=== PATIENT | male | born 1980 | race Two or more races ===

== ENCOUNTER 2025-01-27 16:50 | Emergency (ER) | payer MEDICAID, OTHER ==
[~2025-01-27] VITALS: Ht 157.5 cm; Wt 90.2 kg
--- NOTE | 2025-01-27 17:24 | ED.PDOC ---
HPI Comments 44-year-old male presents to the ER with reported history of a negative endoscopy/colonoscopy last year and appendectomy brought in by spouse complaining of diffuse abdominal pain for the past month. Patient describes the pain as soreness, as if he has been working out, states it is constant, and states it does not improve with proton pump inhibitors that he has been taking daily. He states the pain became severe last night around 1:30 a.m., radiated to his chest and mid esophageal area, resulting in shortness of breath. Patient denies any chest pain now, and denies feeling short of breath at this moment. He states the abdominal pain is severe, and is concerned it may be due to food allergies. Denies chills, fever, N/V/D or urinary symptoms. No other associated symptoms, modifiers, recent injuries or sick contacts present at this time. Chief Complaint: Abdominal Pain Time Seen by MD: 17:05 Reviewed Notes: Nurses Notes, Medications, Allergies Allergies: Coded Allergies: NO KNOWN ALLERGIES (Unverified , 01/27/25) Home Meds Active Scripts Hydrocodone-Acetaminophen (Hydrocodone Bitartrate/AC 5-325 mg) 1 Tab Tab, 1 TAB PO Q6HP PRN, #20 TAB prn breakthrough pain Prov:AHMET LITTLE MD 01/27/25 Dicyclomine Hcl (BENTYL CAPSULE) 10 Mg Cp, 2 CAP PO Q6HP PRN, #30 CAP 11 Refills prn abdominal pain Prov:AHMET LITTLE MD 01/27/25 Sucralfate (CARAFATE) 1 Gm Tab, 1 GM OR Q12HR, #60 TAB Prov:AHMET LITTLE MD 01/27/25 Famotidine (Pepcid AC) 20 Mg Tab, 20 MG PO BID, #60 TAB Prov:AHMET LITTLE MD 01/27/25 Information Source: Patient Mode of Arrival: Ambulatory Severity: Moderate Timing: Months Duration: Since onset Prehospital treatment: None Location: Chest (L) Radiation: No Radiation Quality: Pressure, Burning Onset: At Rest Cardiac Risk Factors: None PE Risk Factors: None History of: None Associated Signs and Symptoms: Abdominal Pain, Heartburn Past Medical History PAST MEDICAL HISTORY: Denies Surgical History: Appendectomy, Denies all surgeries Surgical History (Other): Endoscopy one year ago Family History Family History: Reviewed,noncontributory to illness, Unknown Social History Smoker: Non-Smoker Alcohol: Denies ETOH Use Drugs: Denies Drug Use Lives In: Home Constitutional: denies: chills, diaphoresis, fatigue, fever, malaise, sweats, weakness, others EENTM: denies: blurred vision, double vision, ear bleeding, ear discharge, ear drainage, ear pain, ear ringing, eye pain, eye redness, hearing loss, mouth pain, mouth swelling, nasal discharge, nose bleeding, nose congestion, nose pain, photophobia, tearing, throat pain, throat swelling, voice changes, others Respiratory: denies: cough, hemoptysis, orthopnea, SOB at rest, shortness of breath, SOB with excertion, stridor, wheezing, others Cardiovascular: reports: chest pain; denies: dizzy spells, diaphoresis, Dyspnea on exertion, edema, irregular heart beat, left arm pain, lightheadedness, palpitations, PND, syncope, others Gastrointestinal: reports: abdominal pain; denies: abdomen distended, blood streaked bowels, constipated, diarrhea, dysphagia, difficulty swallowing, hematemesis, melena, nausea, poor appetite, poor fluid intake, rectal bleeding, rectal pain, vomiting, others Genitourinary: denies: burning, dysuria, flank pain, frequency, hematuria, incontinence, penile discharge, penile sore, pain, testicle pain, testicle swelling, urgency, others Neurological: denies: dizziness, fainting, headache, left sided numbness, left sided weakness, numbness, paresthesia, pre-existing deficit, right sided numbness, right sided weakness, seizure, speech problems, tingling, tremors, weakness, others Musculoskeletal: denies: back pain, gout, joint pain, joint swelling, muscle pain, muscle stiffness, neck pain, others Integumetry: denies: bruises, change in color, change in hair/nails, dryness, laceration, lesions, lumps, rash, wounds, others Allergic/Immunocompromised: denies: Difficulty Healing, Frequent Infections, Hives, Itching, others Hematologic/Lymphatic: denies: anemia, blood clots, easy bleeding, easy bruising, swollen glands, others Endocrine: denies: excessive hunger, excessive sweating, excessive thirst, excessive urination, flushing, intolerance to cold, intolerance to heat, unexplained weight gain, unexplained weight loss, others Psychiatric: denies: anxiety, bipolar disorder, depression, hopeless, panic disorder, schizophrenia, sleepless, suicidal, others All Other Systems: Reviewed and Negative Physical Exam General Appearance: No Apparent Distress, Obese HEENT: Other (Pupils and face symmetric. Moist mucous membranes.) Neck: Full Range of Motion, Normal Inspection Respiratory: Lungs Clear, No Accessory Muscle Use, No Respiratory Distress, Normal Breath Sounds Cardiovascular: No Edema, No JVD, Regular Rate/Rhythm Breast Exam: Deferred Gastrointestinal: Diffuse, Soft, Tenderness Genitalia: Deferred Pelvic: Deferred Rectal: Deferred Extremities: Normal inspection, Normal range of motion, Non-tender, No pedal edema Musculoskeletal : Apperance: Normal Neurologic: Alert (Oriented x4), Normal Affect, Normal Mood, Other (Ambulatory) Cerebellar Function: NOT DONE Reflexes: NOT DONE Skin: Dry, Normal Color, Warm Lymphatic: NOT DONE EKG EKG : Comments Sinus rhythm, rate 79, normal intervals, left axis deviation, old inferior infarct, nonspecific T change. Was a procedure done? Was a procedure done?: No CP Differential Dx Differential Diagnosis: Angina, CT Other Differential Diagnosis Colitis, diverticular disease, ischemic bowel, impaction, UTI, ulcer disease, pancreatitis, among others Differential Diagnosis: CHF Differential Diagnosis: Chest Wall Pain, Esophageal reflux/spasm, Gastritis, Pericarditis X-Ray, Labs, Meds, VS Vital Signs Date Time Temp Pulse Resp B/P (MAP) Pulse Ox O2 Delivery O2 Flow Rate FiO2 01/27/25 18:10 96 16 120/75 01/27/25 17:51 78 19 98 Room Air* 0 21 01/27/25 17:43 73 16 136/86 01/27/25 17:34 73 16 98 Room Air 01/27/25 17:34 98.2 73 16 136/86 (103) 98 98.2 01/27/25 16:57 98.6 80 16 126/82 (97) 96 98.6 Lab Test 01/27/25 18:43 01/27/25 17:26 01/27/25 17:00 Range/Units Troponin I High Sensitivity < 3 L < 3 L </=54 ng/L White Blood Count 12.3 H 4.4-10.8 10^3/uL Red Blood Count 5.38 4.5-5.90 10^6/uL Hemoglobin 16.5 13.5-17.5 g/dL Hematocrit 48.6 41.0-53.0 % Mean Corpuscular Volume 90.4 80.0-100.0 fL Mean Corpuscular Hemoglobin 30.7 28.0-32.0 pg Mean Corpuscular Hemoglobin Concent 33.9 32.0-36.0 g/dL Red Cell Distribution Width 13.9 11.8-14.3 % Platelet Count 290 140-450 10^3/uL Mean Platelet Volume 8.5 6.9-10.8 fL Neutrophils (%) (Auto) 74.6 37.0-80.0 % Lymphocytes (%) (Auto) 18.3 10.0-50.0 % Monocytes (%) (Auto) 6.0 0.0-12.0 % Eosinophils (%) (Auto) 0.6 0.0-7.0 % Basophils (%) (Auto) 0.5 0.0-2.0 % Neutrophils # (Auto) 9.2 H 1.6-8.6 10 ^3/uL Lymphocytes # (Auto) 2.2 0.4-5.4 10 ^3/uL Monocytes # (Auto) 0.7 0-1.3 10 ^3/uL Eosinophils # (Auto) 0.1 0-0.8 10 ^3/uL Basophils # (Auto) 0.1 0-0.2 10 ^3/uL Nucleated Red Blood Cells 0.0 % Sodium Level 142 136-145 mmol/L Potassium Level 4.2 3.5-5.1 mmol/L Chloride Level 107 98-107 mmol/L Carbon Dioxide Level 22 20-31 mmol/L Anion Gap 13 5-15 Blood Urea Nitrogen 14 9-23 mg/dL Creatinine 0.84 0.700-1.30 mg/dL Glomerular Filtration Rate Calc 110 >90 mL/min BUN/Creatinine Ratio 16.7 10.0-20.0 Serum Glucose 106 74-106 mg/dL Lactic Acid Level 1.1 0.4-2.0 mmol/L Calcium Level 9.8 8.7-10.4 mg/dL Total Bilirubin 0.9 0.2-1.0 mg/dL Aspartate Amino Transferase (AST) 30 13-40 U/L Alanine Aminotransferase (ALT) 74 H 7-40 U/L Alkaline Phosphatase 100 46-116 U/L B-Type Natriuretic Peptide 7.42 0-100 pg/mL Total Protein 7.3 5.7-8.2 g/dL Albumin 4.9 H 3.2-4.8 g/dL Urine Color Light-yellow Yellow Urine Clarity Clear Clear Urine pH 5.5 5.0-9.0 Urine Specific [place] 1.025 1.001-1.035 Urine Protein Negative Negative Urine Ketones Negative Negative Urine Blood Trace H Negative /uL Urine Nitrite Negative Negative Urine Bilirubin Negative Negative Urine Urobilinogen Normal Negative mg/dL Urine Leukocyte Esterase Negative Negative /uL Urine RBC <1 0 - 3 /hpf Urine Microscopic WBC < 1 0-3 /HPF Urine Squamous Epithelial Cells None seen <5 /hpf Urine Bacteria None seen None Seen /hpf Urine Glucose Normal Normal mg/dL Current Medications Medications (Trade) Dose Ordered Sig/Ruth Route Start Time Stop Time Status Last Admin Ondansetron HCl (Zofran) 4 mg ONCE ONCE IV 01/27/25 17:15 01/27/25 17:16 DC 01/27/25 17:42 Morphine Sulfate 4 mg ONCE ONCE IV 01/27/25 17:15 01/27/25 17:16 DC 01/27/25 17:43 Dicyclomine HCl (Bentyl Injection) 20 mg ONCE ONCE IM 01/27/25 17:15 01/27/25 17:16 DC 01/27/25 17:43 Famotidine (Pepcid Injection) 20 mg ONCE ONCE IV 01/27/25 17:15 01/27/25 17:16 DC 01/27/25 17:42 PROCEDURE(s): CXRP - CHEST PORTABLE REASON: chest pain sob ORDER NUMBER(s): [id number], ACCESSION NUMBER(s): [id number] CHEST RADIOGRAPH Indication: chest pain sob Technique: Single frontal view of the chest was obtained Comparison: None FINDINGS: Lines and Tubes: None Lungs: No focal consolidation. Pleura: No effusion. No pneumothorax. Cardiomediastinal contours: Unremarkable Bones: No acute osseous abnormality. IMPRESSION: 1. No acute cardiopulmonary disease. [place] [id number] Ph: [phone] DIAGNOSTIC IMAGING Diagnostic Imaging Report : [id number] Signed PATIENT: AZAM NAYAKACCT: [id number] UNIT: [id number] : 1980 LOC: ER ROOM / BED: / AGE / SEX: 44 / M ADM STATUS: REG ER SERVICE 2071 ORDERING PHYSICIAN: AHMET LITTLE MD PROCEDURE(s): ABPL - CT AB PEL WO CON-NO ORAL OR IV REASON: generaized abd pain ORDER NUMBER(s): [id number], ACCESSION NUMBER(s): [id number] Exam: CT CT AB PEL WO CON-NO ORAL OR IV History: generaized abd pain Comparison Study: None TECHNIQUE: Multidetector CT of the abdomen was performed from lung bases to pubic symphysis. Imaging was performed without IV contrast. Axial, coronal and sagittal multiplanar reformats were obtained from the axial data set by the chnologist. Radiation Dose Information: CT Dose: CTDI volume is 19.88 mGy. Dose-length product is 1105.01 mGy*cm FINDINGS: Evaluation of solid organs is limited due to lack of intravenous contrast use. Findings: Lung Bases: No acute or significant lung base finding. Normal heart size. No pleural or pericardial effusion. Liver: Heterogeneous appearance of the liver changes suggest patchy steatosis. Gallbladder and Biliary Tree: Unremarkable Spleen: Unremarkable Pancreas: The pancreas is grossly normal in appearance. Adrenal Glands: Unremarkable Kidneys: Kidneys are grossly normal without calculi or hydronephrosis. Bladder: Grossly unremarkable for degree of distention. Bowel: The stomach is grossly normal in appearance. Small bowel and colon are normal in caliber and distribution. The appendix is not visualized; however, no secondary findings of acute appendicitis identified. Ascites: Absent Lymphadenopathy: No mesenteric, retroperitoneal or periportal lymphadenopathy. Abdominal Wall and Mesentery: Unremarkable. Vasculature: The visualized abdominal aorta is normal in size and caliber. Evaluation of abdominal and pelvic vessels is limited due to lack of intravenous contrast. Pelvic Organs: Unremarkable Musculoskeletal: No aggressive focal bony lesions, acute fractures or dislocation. Soft tissues: Unremarkable IMPRESSION: 1. Patchy areas of fatty infiltration in the liver consistent with steatosis. There are areas around the gallbladder of increased tissue density may represent areas of fatty sparing. 2. No cholelithiasis. 3. No findings of bowel obstruction. 4. No nephrolithiasis or hydronephrosis. Radiation optimization: All CT scans at this facility use at least one of these dose optimization techniques: automated exposure control mA and/or kV adjustment per patient size (includes targeted exams where dose is matched to clinical indication) or iterative reconstruction. X-Ray, Labs, Meds, VS Comment 44-year-old male with a history of chronic abdominal pain and negative colonoscopy/endoscopy last year complaining of worsening abdominal pain radiating to the chest since last night Vitals unremarkable Exam remarkable for diffuse abdominal tenderness to palpation, nontender to percussion, no rebound or guarding Rhythm strip independently interpreted by me: Sinus rhythm, rate 79, no ectopy. Chest x-ray unremarkable CT abdomen and pelvis IMPRESSION: 1. Patchy areas of fatty infiltration in the liver consistent with steatosis. There are areas around the gallbladder of increased tissue density may represent areas of fatty sparing. 2. No cholelithiasis. 3. No findings of bowel obstruction. 4. No nephrolithiasis or hydronephrosis. CBC remarkable for WBC 12.3, CMP remarkable for ALT 74, lactate normal, troponin negative x2, UA trace blood, otherwise unremarkable Patient treated with the following in the ED: Morphine 4 mg IV, Zofran 4 mg IV, Bentyl 20 mg IM, Pepcid 20 mg IV On re-evaluation, patient states pain has improved. Vitals were stable, abdominal exam was benign, he is tolerating p.o. fluids. Hospitalization was considered, however workup is essentially unremarkable and patient had rapid improvement of symptoms with treatment in the ED. He now appears stable for discharge with close outpatient follow-up with his primary physician for referral to GI. Patient will also be referred to Dr. Suzan Banda. Rx Pepcid, Carafate, Bentyl, [place] Time of 1ST Reevaluation: 17:35 Reevaluation 1ST: Unchanged Time of 2ND Reevaluation: 19:37 Reevaluation 2ND: Improved Patient Education/Counseling: Diagnosis, Treatment, Prognosis Family Education/Counseling: No Family Present Departure 1 Departure Time of Disposition: 19:35 Impression: Primary Impression: Abdominal pain Qualified Codes: R10.84 - Generalized abdominal pain Disposition: 01 HOME / SELF CARE / HOMELESS Condition: Stable Referrals: HERIBERTO BANDA MD Additional Instructions: Your blood and urine test did not show any abnormality that would explain your symptoms. Your chest x-ray was normal. Your CT scan showed a fatty liver, which is unlikely to be the cause of your symptoms. Your CT scan was otherwise normal. I have prescribed medication for your symptoms. Follow-up with your primary doctor in 1-2 days for referral to a counter helper for further evaluation of your abdominal pain. Alternatively, follow-up directly with Dr. Banda. [place] [id number] Ph: [phone] DIAGNOSTIC IMAGING Diagnostic Imaging Report : [id number] Signed PATIENT: AZAM NAYAK ACCT: [id number] UNIT: [id number] : 1980 LOC: ER ROOM / BED: / AGE / SEX: 44 / M ADM STATUS: REG ER SERVICE 06 ORDERING PHYSICIAN: AHMET LITTLE MD PROCEDURE(s): CXRP - CHEST PORTABLE REASON: chest pain sob ORDER NUMBER(s): [id number], ACCESSION NUMBER(s): [id number] CHEST RADIOGRAPH Indication: chest pain sob Technique: Single frontal view of the chest was obtained Comparison: None FINDINGS: Lines and Tubes: None Lungs: No focal consolidation. Pleura: No effusion. No pneumothorax. Cardiomediastinal contours: Unremarkable Bones: No acute osseous abnormality. IMPRESSION: 1. No acute cardiopulmonary disease. ATED BY: TONA FRIED Jr. DO DICTATED DATE/TIME: 01/27/25 1731 [place] [id number] Ph: [phone] DIAGNOSTIC IMAGING Diagnostic Imaging Report : [id number] Signed PATIENT: AZAM NAYAK ACCT: [id number] UNIT: [id number] : 1980 LOC: ER ROOM / BED: / AGE / SEX: 44 / M ADM STATUS: REG ER SERVICE 06 ORDERING PHYSICIAN: AHMET LITTLE MD PROCEDURE(s): ABPL - CT AB PEL WO CON-NO ORAL OR IV REASON: generaized abd pain ORDER NUMBER(s): [id number], ACCESSION NUMBER(s): [id number] Exam: CT CT AB PEL WO CON-NO ORAL OR IV History: generaized abd pain Comparison Study: None TECHNIQUE: Multidetector CT of the abdomen was performed from lung bases to pubic symphysis. Imaging was performed without IV contrast. Axial, coronal and sagittal multiplanar reformats were obtained from the axial data set by the technologist. Radiation Dose Information: CT Dose: CTDI volume is 19.88 mGy. Dose-length product is 1105.01 mGy*cm FINDINGS: Evaluation of solid organs is limited due to lack of intravenous contrast use. Findings: Lung Bases: No acute or significant lung base finding. Normal heart size. No pleural or pericardial effusion. Liver: Heterogeneous appearance of the liver changes suggest patchy steatosis. Gallbladder and Biliary Tree: Unremarkable Spleen: Unremarkable Pancreas: The pancreas is grossly normal in appearance. Adrenal Glands: Unremarkable Kidneys: Kidneys are grossly normal without calculi or hydronephrosis. Bladder: Grossly unremarkable for degree of distention. Bowel: The stomach is grossly normal in appearance. Small bowel and colon are normal in caliber and distribution. The appendix is not visualized; however, no secondary findings of acute appendicitis identified. Ascites: Absent Lymphadenopathy: No mesenteric, retroperitoneal or periportal lymphadenopathy. Abdominal Wall and Mesentery: Unremarkable. Vasculature: The visualized abdominal aorta is normal in size and caliber. Evaluation of abdominal and pelvic vessels is limited due to lack of intravenous contrast. Pelvic Organs: Unremarkable Musculoskeletal: No aggressive focal bony lesions, acute fractures or dislocati on. Soft tissues: Unremarkable IMPRESSION: 1. Patchy areas of fatty infiltration in the liver consistent with steatosis. T here are areas around the gallbladder of increased tissue density may represent areas of fatty sparing. 2. No cholelithiasis. 3. No findings of bowel obstruction. 4. No nephrolithiasis or hydronephrosis. Radiation optimization: All CT scans at this facility use at least one of these dose optimization techniques: automated exposure control mA and/or kV adjustment per patient size (includes targeted exams where dose is matched to clinical indication) or iterative reconstruction. e-Prescriptions Hydrocodone-Acetaminophen (Hydrocodone Bitartrate/AC 5-325 mg) 1 Tab Tab 1 TAB PO Q6HP PRN, #20 TAB prn breakthrough pain Prov: AHMET LITTLE MD 01/27/25 Dicyclomine Hcl (BENTYL CAPSULE) 10 Mg Cp 2 CAP PO Q6HP PRN, #30 CAP 11 Refills prn abdominal pain Prov: AHMET LITTLE MD 01/27/25 Sucralfate (CARAFATE) 1 Gm Tab 1 GM OR Q12HR, #60 TAB Prov: AHMET LITTLE MD 01/27/25 Famotidine (Pepcid AC) 20 Mg Tab 20 MG PO BID, #60 TAB Prov: AHMET LITTLE MD 01/27/25 Discharged With: Spouse Critical Care Note Critical Care Time?: No Stability Stability form required: No Heart Score Heart Score: Heart Score Response (Comments) Value History Slightly Suspicious 0 EKG Repolarization Disturb 1 Age 45-64 1 Risk Factors No known risk factors 0 Troponin Normal limit 0 Total 2 I personally scribed for AHMET LITTLE MD ([email or web address]) on 01/27/25 at 17:24. Electronically submitted by Ajay Irizarry ([email or web address]). AHMET LITTLE MD January 27, 2025 17:24
--- NOTE | 2025-01-27 17:34 | DVH ---
CHEST RADIOGRAPH Indication: chest pain sob Technique: Single frontal view of the chest was obtained Comparison: None FINDINGS: Lines and Tubes: None Lungs: No focal consolidation. Pleura: No effusion. No pneumothorax. Cardiomediastinal contours: Unremarkable Bones: No acute osseous abnormality. IMPRESSION: 1. No acute cardiopulmonary disease.
[2025-01-27 17:41] LABS: Basophils # (auto) 0.1 10 ^3/uL (0-0.2); Basophils % (auto) 0.5 % (0.0-2.0); Eosinophils # (auto) 0.1 10 ^3/uL (0-0.8); Eosinophils % (auto) 0.6 % (0.0-7.0); Hematocrit 48.6 % (41.0-53.0); Hemoglobin 16.5 g/dL (13.5-17.5); Lymphocytes # (auto) 2.2 10 ^3/uL (0.4-5.4); Lymphocytes % (auto) 18.3 % (10.0-50.0); Mean Corpuscular Hemoglobin 30.7 pg (28.0-32.0); Mean Corpuscular Hgb Conc. 33.9 g/dL (32.0-36.0); Mean Corpuscular Volume 90.4 fL (80.0-100.0); Monocytes # (auto) 0.7 10 ^3/uL (0-1.3); Neutrophils # (auto) 9.2 10 ^3/uL (1.6-8.6); Neutrophils % (auto) 74.6 % (37.0-80.0); Platelet Count (auto) 290 10^3/uL (140-450); Red Blood Cells 5.38 10^6/uL (4.5-5.90); Red Cell Distribution Width 13.9 % (11.8-14.3); White Blood Cell 12.3 10^3/uL (4.4-10.8)
[2025-01-27] MEDS: ONDANSETRON HCL 4 MG/2 ML VIAL IV ONE (17:42)
[2025-01-27] MEDS: FAMOTIDINE (10MG/ML) 2ML VL IV ONE (17:42)
[2025-01-27] MEDS: DICYCLOMINE HCL (10MG/ML) 2 ML AMPULE IM ONE (17:43)
[2025-01-27] MEDS: MORPHINE SULFATE 4 MG/ML SYR/VIAL IV ONE (17:43)
[2025-01-27 17:51] VITALS: PULSE 78; RESP 19; O2SAT 98
--- NOTE | 2025-01-27 17:51 | DVH ---
Exam: CT CT AB PEL WO CON-NO ORAL OR IV History: generaized abd pain Comparison Study: None TECHNIQUE: Multidetector CT of the abdomen was performed from lung bases to pubic symphysis. Imaging was performed without IV contrast. Axial, coronal and sagittal multiplanar reformats were obtained fr om the axial data set by the technologist. Radiation Dose Information: CT Dose: CTDI volume is 19.88 mGy. Dose-length product is 1105.01 mGy*cm FINDINGS: Evaluation of solid organs is limited due to lack of intravenous contrast use. Findings: Lung Bases: No acute or significant lung base finding. Normal heart size. No pleural or pericardial effusion. Liver: Heterogeneous appearance of the liver changes suggest patchy steatosis. Gallbladder and Biliary Tree: Unremarkable Spleen: Unremarkable Pancreas: The pancreas is grossly normal in appearance. Adrenal Glands: Unremarkable Kidneys: Kidneys are grossly normal without calculi or hydronephrosis. Bladder: Grossly unremarkable for degree of distention. Bowel: The stomach is grossly normal in appearance. Small bowel and colon are normal in caliber and d istribution. The appendix is not visualized; however, no secondary findings of acute appendicitis id entified. Ascites: Absent Lymphadenopathy: No mesenteric, retroperitoneal or periportal lymphadenopathy. Abdominal Wall and Mesentery: Unremarkable. Vasculature: The visualized abdominal aorta is normal in size and caliber. Evaluation of abdominal a nd pelvic vessels is limited due to lack of intravenous contrast. Pelvic Organs: Unremarkable Musculoskeletal: No aggressive focal bony lesions, acute fractures or dislocation. Soft tissues: Unremarkable IMPRESSION: 1. Patchy areas of fatty infiltration in the liver consistent with steatosis. There are areas around the gallbladder of increased tissue density may represent areas of fatty sparing. 2. No cholelithiasis. 3. No findings of bowel obstruction. 4. No nephrolithiasis or hydronephrosis. Radiation optimization: All CT scans at this facility use at least one of these dose optimization te chniques: automated exposure control mA and/or kV adjustment per patient size (includes targeted exa ms where dose is matched to clinical indication) or iterative reconstruction.
[2025-01-27 17:52] LABS: Alkaline Phosphatase 100 U/L (46-116); Anion Gap 13 (5-15); Aspartate Aminotransferase 30 U/L (13-40); BUN/Creatinine Ratio 16.7 (10.0-20.0); Bilirubin, Total 0.9 mg/dL (0.2-1.0); Blood Urea Nitrogen 14 mg/dL (9-23); Calcium 9.8 mg/dL (8.7-10.4); Carbon Dioxide 22 mmol/L (20-31); Chloride 107 mmol/L (98-107); Potassium 4.2 mmol/L (3.5-5.1); Sodium 142 mmol/L (136-145); Total Protein 7.3 g/dL (5.7-8.2)
[2025-01-27 17:53] LABS: Alanine Aminotransferase 74 U/L (7-40); Albumin 4.9 g/dL (3.2-4.8); Glucose 106 mg/dL (74-106)
[2025-01-27 17:57] LABS: Urine Bacteria None Seen /hpf (None Seen)
[2025-01-27 18:04] LABS: Urine Blood TRACE /uL (Negative); Urine Clarity Clear (Clear); Urine Color Light-Yellow (Yellow); Urine Protein, UAD Negative (Negative); Urine Specific Gravity 1.025 (1.001-1.035); Urine Squamous Epithelial Cell None Seen /hpf (<5); Urine Urobilinogen Normal (Negative); Urine WBC < 1 /HPF (0-3); Urine pH 5.5 (5.0-9.0)
[2025-01-27] MEDS ORDERED: DICY10CA PO (19:41)
[2025-01-27] MEDS ORDERED: FAMO-161 PO (19:41)
[2025-01-27] MEDS ORDERED: HYDR-4902 PO (19:41)
[2025-01-27] MEDS ORDERED: SUCR1TAB31 OR (19:41)
[2025-01-27 20:12] VITALS: BP 125/80; PULSE 69; RESP 20; TEMP 97.9; O2SAT 98
--- NOTE | 2025-01-29 10:36 | ECG ---
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
== END 2025-01-27 21:50 | disposition home or self-care (01) ==
LOC: ER 16:50
DX: R10.84 Generalized abdominal pain (principal); Z90.49 Acquired absence of other specified parts of digestive tract; Z98.890 Other specified postprocedural states
CPT/HCPCS: 36415; 71045; 74176; 80053; 81001; 83605; 83880; 84484; 85025; 93005; 96372; 96374; 96375; 99285; J0500; J2270; J2405; J3490

== ENCOUNTER 2025-08-24 00:29 | Emergency (ER) | payer MEDICAID ==
[~2025-08-24] VITALS: Ht 162.6 cm; Wt 86.0 kg
[~2025-08-24 00:29] MED LIST: DICY10CA PO; FAMO-161 PO; HYDR-4902 PO; SUCR1TAB31 OR
[2025-08-24 00:36] VITALS: BP 149/55; PULSE 67; RESP 18; TEMP 97.9; O2SAT 98
[2025-08-24 02:17] LABS: Hematocrit 44.5 % (41.0-53.0); Hemoglobin 15.2 g/dL (13.5-17.5); Mean Corpuscular Hemoglobin 30.5 pg (28.0-32.0); Mean Corpuscular Volume 89.6 fL (80.0-100.0); Nucleated Red Blood Cells % 0.1 %
[2025-08-24 02:35] LABS: INR 0.99 (0.9-1.15); Partial Thromboplastin Time 27.6 SEC (24.5-34.5); Prothrombin Time 10.5 sec (9.3-11.8)
[2025-08-24 02:38] LABS: Albumin 4.7 g/dL (3.2-4.8); Alkaline Phosphatase 98 U/L (46-116); Anion Gap 11 (5-15); BUN/Creatinine Ratio 19.8 (10.0-20.0); Blood Urea Nitrogen 17 mg/dL (9-23); Calcium 9.8 mg/dL (8.7-10.4); Carbon Dioxide 26 mmol/L (20-31); Chloride 106 mmol/L (98-107); Potassium 3.8 mmol/L (3.5-5.1); Sodium 143 mmol/L (136-145); Total Protein 7.3 g/dL (5.7-8.2)
[2025-08-24 02:39] LABS: Alanine Aminotransferase 68 U/L (7-40); Bilirubin, Total 0.9 mg/dL (0.2-1.0); Glucose 122 mg/dL (74-106)
--- NOTE | 2025-08-24 02:48 | ED.PDOC ---
Eye-HPI HPI Comments PT HAD DENTAL WORK DONE YESTERDAY SITE BLEEDING FOR 3 HOURS, PT TAKES NO BLOOD THINNERS. PATIENT DOES STATE HAS BEEN TAKING 800 MG OF IBUPROFEN 3 TIMES DAILY. DENIES FEVER, CHILLS, NAUSEA, VOMITING, CHEST PAIN, SHORTNESS BREATH, DIFFICULTY BREATHING, OR ANY OTHER CONCERNING SYMPTOMS Chief Complaint: Tooth Pain Time Seen by MD: 00:37 Primary Care Provider: NONE Allergies: Coded Allergies: NO KNOWN ALLERGIES (Unverified , 01/27/25) Home Meds Active Scripts Hydrocodone-Acetaminophen (Hydrocodone Bitartrate/AC 5-325 mg) 1 Tab Tab, 1 TAB PO Q6HP PRN, #20 TAB prn breakthrough pain Prov:AHMET LITTLE MD 01/27/25 Dicyclomine Hcl (BENTYL CAPSULE) 10 Mg Cp, 2 CAP PO Q6HP PRN, #30 CAP 11 Refills prn abdominal pain Prov:AHMET LITTLE MD 01/27/25 Sucralfate (CARAFATE) 1 Gm Tab, 1 GM OR Q12HR, #60 TAB Prov:AHMET LITTLE MD 01/27/25 Famotidine (Pepcid AC) 20 Mg Tab, 20 MG PO BID, #60 TAB Prov:AHMET LITTLE MD 01/27/25 Mode of Arrival: Ambulatory Past Medical History PAST MEDICAL HISTORY: Denies Surgical History: Appendectomy, Denies all surgeries Family History Family History: Reviewed,noncontributory to illness, Unknown Social History Smoker: Non-Smoker Alcohol: Denies ETOH Use Drugs: Denies Drug Use Lives In: Home All Other Systems: Reviewed and Negative (SEE HPI) Physical Exam General Appearance: No Apparent Distress, Normal HEENT: Pharynx Normal, TMs Normal, Other (NOTED SCANT AMOUNT OF BLEEDING ALONG UPPER AND LOWER GUMS NOTED OPEN LESIONS OR LACERATIONS.) Neck: Full Range of Motion, Non-Tender Respiratory: Lungs Clear, No Respiratory Distress, Normal Breath Sounds Cardiovascular: No Edema, No JVD, No Murmur, No Gallop, Normal Peripheral P ulses, Regular Rate/Rhythm Breast Exam: Deferred Gastrointestinal: No Organomegaly, Non Tender, No Pulsatile Mass, Normal Bowel Sounds, Soft Genitalia: Deferred Pelvic: Deferred Rectal: Deferred Extremities: Normal range of motion Musculoskeletal : Apperance: Normal Neurologic: Alert, No Motor Deficits, Normal Affect, Normal Mood, No Sensory Deficits Cerebellar Function: Normal Reflexes: NOT DONE Skin: Dry, Normal Color, Warm Lymphatic: No Adenopathy Was a procedure done? Was a procedure done?: No EENT DIFF Eye: N/A Ear: N/A Nose: Coagulopathy Mouth: Thrush Sore Throat: N/A X-Ray, Labs, Meds, VS Vital Signs Date Time Temp Pulse Resp B/P (MAP) Pulse Ox O2 Delivery O2 Flow Rate FiO2 08/24/25 00:36 97.9 67 18 149/55 98 97.9 Lab Test 08/24/25 01:55 Range/Units White Blood Count 8.9 4.4-10.8 10^3/uL Red Blood Count 4.97 4.5-5.90 10^6/uL Hemoglobin 15.2 13.5-17.5 g/dL Hematocrit 44.5 41.0-53.0 % Mean Corpuscular Volume 89.6 80.0-100.0 fL Mean Corpuscular Hemoglobin 30.5 28.0-32.0 pg Mean Corpuscular Hemoglobin Concent 34.0 32.0-36.0 g/dL Red Cell Distribution Width 13.9 11.8-14.3 % Platelet Count 274 140-450 10^3/uL Mean Platelet Volume 8.9 6.9-10.8 fL Neutrophils (%) (Auto) 66.3 37.0-80.0 % Lymphocytes (%) (Auto) 26.0 10.0-50.0 % Monocytes (%) (Auto) 6.9 0.0-12.0 % Eosinophils (%) (Auto) 0.6 0.0-7.0 % Basophils (%) (Auto) 0.2 0.0-2.0 % Neutrophils # (Auto) 5.9 1.6-8.6 10 ^3/uL Lymphocytes # (Auto) 2.3 0.4-5.4 10 ^3/uL Monocytes # (Auto) 0.6 0-1.3 10 ^3/uL Eosinophils # (Auto) 0.1 0-0.8 10 ^3/uL Basophils # (Auto) 0 0-0.2 10 ^3/uL Nucleated Red Blood Cells 0.1 % Prothrombin Time 10.5 9.3-11.8 sec Prothrombin Time INR 0.99 0.9-1.15 Activated Partial Thromboplast Time 27.6 24.5-34.5 SEC Sodium Level 143 136-145 mmol/L Potassium Level 3.8 3.5-5.1 mmol/L Chloride Level 106 98-107 mmol/L Carbon Dioxide Level 26 20-31 mmol/L Anion Gap 11 5-15 Blood Urea Nitrogen 17 9-23 mg/dL Creatinine 0.86 0.700-1.30 mg/dL Glomerular Filtration Rate Calc 109 >90 mL/min BUN/Creatinine Ratio 19.8 10.0-20.0 Serum Glucose 122 H 74-106 mg/dL Calcium Level 9.8 8.7-10.4 mg/dL Total Bilirubin 0.9 0.2-1.0 mg/dL Aspartate Amino Transferase (AST) 28 13-40 U/L Alanine Aminotransferase (ALT) 68 H 7-40 U/L Alkaline Phosphatase 98 46-116 U/L Total Protein 7.3 5.7-8.2 g/dL Albumin 4.7 3.2-4.8 g/dL X-Ray, Labs, Meds, VS Comment BLEEDING CONTROLLED. CBC, CMP AND COAGS ALL WITHIN NORMAL LIMITS. ADVISED PATIENT TO DISCONTINUE THE 800 IBUPROFEN TRIAL TYLENOL. ADVISED TO CALL IN THE MORNING AND SCHEDULE FOLLOW UP WITH THE DENTIST. ER RETURN PRECAUTIONS GIVEN PATIENT INDICATES UNDERSTANDING AGREES WITH DISCHARGE PLAN OF CARE. Time of 1ST Reevaluation: 00:37 Reevaluation 1ST: Unchanged Time of 2ND Reevaluation: 02:47 Reevaluation 2ND: Improved Patient Education/Counseling: Diagnosis, Treatment, Need For Follow Up Family Education/Counseling: No Family Present SEPSIS Sepsis Screen Date sepsis recognized/suspect: Aug 24, 2025 Time Sepsis recognized/suspect: 0136 Recent Procedure: No On Antibiotic Therapy: No Respiratory Rate >20: No Heart Rate >90: No Temp<36 C (96.8 F) or >38.3 C: No SBP <90 or MAP <65 mmHG: No New Acute Mental Status Change: No Is the patient on CPAP, BIPAP,: No Vital Signs Date Time Temp Pulse Resp B/P (MAP) Pulse Ox O2 Delivery O2 Flow Rate FiO2 08/24/25 00:36 97.9 67 18 149/55 98 97.9 Laboratory Tests Test 08/24/25 01:55 White Blood Count 8.9 10^3/uL (4.4-10.8) Departure 1 Departure Time of Disposition: 02:47 Impression: Primary Impression: Gums, bleeding Disposition: 01 HOME / SELF CARE / HOMELESS Condition: Stable Discharged With: Self Critical Care Note Critical Care Time?: No Stability Stability form required: SHABNAM River Aug 24, 2025 02:48
== END 2025-08-24 02:56 | disposition home or self-care (01) ==
LOC: ER 00:29
DX: Z90.49 Acquired absence of other specified parts of digestive tract (principal); K06.8 Other specified disorders of gingiva and edentulous alveolar ridge; Z79.899 Other long term (current) drug therapy; Z86.2 Personal history of diseases of the blood and blood-forming organs and certain disorders involving the immune mechanism
CPT/HCPCS: 36415; 80053; 85025; 85610; 85730